=== PATIENT | male | born 1965 ===

== ENCOUNTER 2017-05-06 09:29 | Day surgery (SDC) | payer MEDICAID ==
[2017-05-01 12:32] VITALS: BMI 33.9
[2017-05-06] MEDS ORDERED: Propofol 10 mg/ml Inj (20 ML) ONE (13:19)
[2017-05-06] MEDS ORDERED: Midazolam 2 MG/2 ML VIAL ONE (13:19)
[2017-05-06] MEDS ORDERED: Succinylcholine Chloride 20 mg/ml Syr (5 ml) IV ONE (13:21)
[2017-05-06] MEDS ORDERED: Rocuronium 10 mg/ml (5 ml) ONE (13:21)
[2017-05-06] MEDS ORDERED: ceFAZolin IV 1 gm in Dextrose 1 GM/50 ML BAG IVPB ONE (13:24)
[2017-05-06] MEDS ORDERED: Bupivacaine HCl 0.25% PF (10 ml) Inj ONE ×2 (13:25)
[2017-05-06] MEDS ORDERED: Lidocaine 1% Inj (20ml) ONE (13:26)
[2017-05-06] MEDS ORDERED: Lactated Ringer's 1,000 ML IV ONE (13:35)
[2017-05-06] MEDS ORDERED: Absorbable Gelatin Sponge Size 12-7 ONE ×2 (14:08→14:40)
[2017-05-06] MEDS ORDERED: Oxycodone/Acetaminophen 5/325 mg Tab PO PRN (14:29)
[2017-05-06] MEDS ORDERED: HYDROmorphone 0.5 mg/0.5 ml ISec IVP PRN (14:34)
[2017-05-06 16:04] VITALS: BP 125/84; PULSE 82; RESP 20; TEMP 97.8; O2SAT 99
--- NOTE | 2017-05-06 21:34 | OP ---
PROCEDURE DATE: 05/06/2017 PREOPERATIVE DIAGNOSIS: Anorectal mass. POSTOPERATIVE DIAGNOSIS: Anorectal mass. PROCEDURE PERFORMED: Transanal excision of rectal tumor with repair of bleeding and adjacent tissue transfer closure. SURGEON: Dr. Grimes. ANESTHESIA: General. BLOOD LOSS: 30 mL. POSTOPERATIVE CONDITION: Stable. INDICATIONS FOR SURGERY: This is a 51-year-old male with a protruding anorectal mass, who presents for exam under anesthesia along with transanal excision. 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 A wide deep incision was performed. PROCEDURE: The patient was taken to the operating room, general anesthesia administered and he was placed in a prone jackknife position with the buttocks taped open. The rectal area was prepped and draped and an anoscopy was performed revealing the above tumor at the 2 o'clock level. An elliptical incision was made surrounding the tumor. It was dissected into the fascia layer, completely removed. The bleeding was controlled using a Bovie. A large *------* rectal blood vessel was repaired and generous tissue flaps were raised and adjacent tissue flap closure was performed with multiple layers of Monocryl. The patient tolerated the procedure well, returned to the recovery room in stable condition. Anthony Grimes MD
== END 2017-05-06 16:15 | disposition home or self-care (01) ==
LOC: C.SDS 09:29
PROVIDERS: ATTEND Surgery
DX: A63.0 Anogenital (venereal) warts (principal)
CPT/HCPCS: 14000; 46922; 88305; J0690; J1885; J2001; J2250; J2405; J2704; J3010; J7120